=== PATIENT | male | born 1960 | race Caucasian/White ===

== ENCOUNTER → 2016-10-31 | Outpatient (CLI) | payer BC ==
--- NOTE | 2016-10-31 14:54 | XR ---
EXAMINATION TYPE: XR knee limited RT DATE OF EXAM: 10/31/2016 1:20 PM COMPARISON: NONE HISTORY: 55-year-old male with pain, peripheral tear of the medial meniscus TECHNIQUE: AP and lateral views FINDINGS: Limited views show moderate knee joint effusion. Extensor mechanism is intact though there is a corti cated bone fragment just superior to the tibial tuberosity. Multiple periarticular bone islands. Trac e marginal spurring in the patellofemoral compartment. No acute fracture or dislocation. IMPRESSION: 1. Moderate knee joint effusion. If concern for internal derangement, MRI can be considered. 2. Remote fragmentation at the tibial tuberosity could represent sequela of prior avulsion injury or Kassandra-Schlatter's disease. 3. No acute osseous abnormality seen.
== END | disposition home or self-care (01) ==
LOC: RADXRMAIN 13:07
PROVIDERS: ATTEND Family Medicine
DX: M25.461 Effusion, right knee (principal)

== ENCOUNTER → 2016-12-21 | Outpatient (CLI) | payer BC ==
--- NOTE | 2016-12-22 20:38 | MR ---
EXAMINATION TYPE: MR knee RT wo con DATE OF EXAM: 12/21/2016 8:57 AM COMPARISON: NONE HISTORY: Rt. knee pain TECHNIQUE: Multiplanar, multisequence imaging of the right knee is performed without IV contrast. FINDINGS: MEDIAL MENISCUS: Anterior horn of the medial meniscus appears normal. There is an oblique tear throug h the posterior horn medial meniscus with communication with the superior and inferior articular surf aces. Displaced fracture fragment is not identified. LATERAL MENISCUS: Anterior and posterior horns are intact without tear. CRUCIATE LIGAMENTS: The anterior and posterior cruciate ligaments are intact and unremarkable. COLLATERAL LIGAMENTS: The medial collateral ligament and lateral collateral ligament complex are inta ct. There may be some mild increased signal adjacent to the medial and lateral collateral ligaments, more so on the medial signs suggestive of some strain. EXTENSOR MECHANISM: Visualized quadriceps and patellar tendons are intact. EFFUSION: Minimal joint fluid is present. Medial and lateral patellar retinaculum is intact. POPLITEAL CYST: No popliteal/estevez cyst. TRICOMPARTMENT SPACES: There appears to be diffuse thinning of the tricompartment joint spaces. CARTILAGE: There is some thinning of the lateral compartment tibial articular surface. Small defect m ay be within the mid articular cartilage of the posterior patella. Series 601 image 17. Correlate for chondromalacia. BONE MARROW SIGNAL: Small amount of increased signal on T2-weighted sequences is within the medial ti bial plateau. This may be a small contusion. OTHER: No additional significant abnormality is appreciated. IMPRESSION: Oblique tear through the posterior horn medial meniscus with communication with the superior articula r surface and likely with communication with the inferior articular surface. 2. Strain of the medial and lateral collateral ligaments. A small contusion of the medial tibial plat eau may be present. 3. Small joint effusion. 4. Mild stress or degenerative change diffusely through the tricompartment spaces.
== END | disposition home or self-care (01) ==
LOC: RADMRIMAIN 08:01
PROVIDERS: ATTEND Family Medicine
DX: S83.221A Peripheral tear of medial meniscus, current injury, right knee, initial encounter (principal)

== ENCOUNTER → 2024-12-21 | Outpatient (CLI) | payer BC ==
--- NOTE | 2024-12-21 17:59 | CA ---
Transthoracic Echo Report Name: Amelia Morillo Age: 64 Gender: M : 1960 Exam Date: 12/21/2024 13:18 Exam Location: [place] [facility] Ht (in): 73 Wt (lb): 200 Ordering Physician: Jan Paulson DO Attending/Referring Phys: Reading Coach Fany Ontiveros RDCS Procedure CPT: Indications: R01.1 cardiac murmur Cardiac Hx: Technical Quality: Fair Contrast 1: Total Dose (mL): Contrast 2: Total Dose (mL): MEASUREMENTS (Male / Female) Normal Values 2D ECHO LV Diastolic Diameter PLAX 5.1 cm 4.2 - 5.9 / 3.9 - 5.3 cm LV Systolic Diameter PLAX 3.4 cm IVS Diastolic Thickness 0.9 cm 0.6 - 1.0 / 0.6 - 0.9 cm LVPW Diastolic Thickness 1.1 cm 0.6 - 1.0 / 0.6 - 0.9 cm LV Relative Wall Thickness 0.4 LVOT Diameter 2.4 cm LV Diastolic Volume MOD BP 135.6 cm??? 67 - 155 / 56 - 104 cm??? LV Systolic Volume MOD BP 48.9 cm??? 22 - 58 / 19 - 49 cm??? LV Ejection Fraction MOD BP 63.9 % >= 55 % LV Cardiac Index MOD BP 2872.3 cm???/min???m??? LV Diastolic Volume MOD 4C 120.7 cm??? LV Systolic Volume MOD 4C 43.0 cm??? LV Ejection Fraction MOD 4C 64.4 % LV Cardiac Index MOD 4C 2575.7 cm???/min???m??? LV Diastolic Length 4C 8.8 cm LV Systolic Length 4C 7.4 cm LV Diastolic Volume MOD 2C 140.8 cm??? LV Systolic Volume MOD 2C 55.8 cm??? LV Ejection Fraction MOD 2C 60.3 % LV Cardiac Index MOD 2C 2816.3 cm???/min???m??? LV Diastolic Length 2C 9.5 cm LV Systolic Length 2C 7.5 cm LA Volume 65.3 cm??? 18 - 58 / 22 - 52 cm??? LA Volume Index 30.0 cm???/m??? 16 - 28 cm???/m??? Ascending Aorta Diameter 3.8 cm DOPPLER AV Peak Velocity 207.8 cm/s AV Peak Gradient 17.3 mmHg AV Mean Velocity 141.7 cm/s AV Mean Gradient 8.9 mmHg AV Velocity Time Integral 38.2 cm LVOT Peak Velocity 150.8 cm/s LVOT Peak Gradient 9.1 mmHg LVOT Velocity Time Integral 31.5 cm LVOT Stroke Volume 139.0 cm??? LVOT Stroke Volume Index 64.6 ml/m??? LVOT Cardiac Index 4607.3 cm???/min???m??? AV Area Cont Eq vti 3.6 cm??? AV Area Cont Eq pk 3.2 cm??? MV Area PHT 8.8 cm??? Mitral E Point Velocity 56.5 cm/s Mitral A Point Velocity 95.2 cm/s Mitral E to A Ratio 0.6 MV Deceleration Time 86.2 ms FINDINGS Left Ventricle Left ventricular ejection fraction is estimated at 55 to 60 %. Left ventricular cavity size normal. Left ventricular wall thickness normal. No obvious regional wall motion abnormalities. Right Ventricle Normal right ventricular size and function. Unable to estimate the right ventricular systolic pressure. Right Atrium Normal right atrial size. Left Atrium Mildly increased left atrial volume. Mitral Valve Structurally normal mitral valve. No mitral stenosis, regurgitation or prolapse. Aortic Valve Aortic valve not well visualized. No aortic valve stenosis or regurgitation. Tricuspid Valve Structurally normal tricuspid valve. No tricuspid stenosis. Trace tricuspid regurgitation. Pulmonic Valve Pulmonic valve not well visualized. Pericardium No pericardial effusion. Aorta Normal size aortic root and proximal ascending aorta. CONCLUSIONS 1. Normal left ventricular size and systolic function 2. Trace tricuspid regurgitation Previewed by: Dr. Zoila Higgins MD (Electronically Signed) Final Date: 21 December 2024 17:58
== END | disposition home or self-care (01) ==
LOC: RADECHMAIN 13:15
PROVIDERS: ATTEND Family Medicine
DX: I36.1 Nonrheumatic tricuspid (valve) insufficiency (principal); R01.1 Cardiac murmur, unspecified
CPT/HCPCS: 93306

== ENCOUNTER 2025-05-03 08:31 | Day surgery (SDC) | payer BC ==
[2025-05-02 12:53] VITALS: BMI 27.8
[2025-05-03] MEDS: IV FLUID CONTINUATION 1,000 ML IV ONE ×2 (09:24→10:18)
[2025-05-03] MEDS: LACTATED RINGERS 1,000 ML IV SCH (09:36)
[2025-05-03 09:47] VITALS: TEMP 97.8
[2025-05-03] MEDS ORDERED: PROPOFOL 10 MG/ML 20 ML VIAL IV ONE (10:19)
--- NOTE | 2025-05-03 10:31 | P.PCN ---
Date of Procedure: 05/03/25 Procedure(s) Performed: BRIEF HISTORY: Patient is a 64-year-old pleasant white male scheduled for an elective colonoscopy as a part of screening for colon cancer. PROCEDURE PERFORMED: Colonoscopy. PREOPERATIVE DIAGNOSIS: Screening for colon cancer. IV sedation per Anesthesia. PROCEDURE: After informed consent was obtained, the patient, was brought into the endoscopy unit. IV sedation was administered by Anesthesia under continuous monitoring. Digital rectal examination was normal. Initially the Olympus CF-160 flexible video colonoscope was then inserted in the rectum, gradually advanced into the cecum without any difficulty. Careful examination was performed as the scope was gradually being withdrawn. Ileocecal valve and the appendiceal orifice were visualized and appeared normal. Prep was excellent. Mucosa of the cecum, ascending colon, transverse colon, descending colon, sigmoid colon, and rectum appeared normal. Scattered sigmoid diverticulosis. Retroflexion was performed in the rectum and small internal hemorrhoids were seen. The patient tolerated the procedure well. IMPRESSION: Normal-appearing colon from rectum to cecum with no evidence of colorectal neoplasia. Scattered sigmoid diverticulosis and small internal hemorrhoids. RECOMMENDATIONS: Findings of this examination were discussed with the patient as well as his family.. He was advised to have repeat screening colonoscopy in 10 years.
[2025-05-03] MEDS: LABETALOL SYRINGE 5 MG/ML (4 ML SYR) IVP STA (11:06)
[2025-05-03] MEDS: hydrALAZINE HCL 20 MG/ML 1 ML VIAL IVP STA (12:03)
[2025-05-03 12:04] VITALS: RESP 14
[2025-05-03 12:20] VITALS: BP 134/91; PULSE 68
== END 2025-05-03 12:36 | disposition home or self-care (01) ==
LOC: ORWHC2ENDO 08:31
PROVIDERS: ATTEND Internal Medicine Gastroenterology
DX: Z12.11 Encounter for screening for malignant neoplasm of colon (principal); K57.30 Diverticulosis of large intestine without perforation or abscess without bleeding; K64.8 Other hemorrhoids
CPT/HCPCS: 45378; J0360; J2704; J1920